=== PATIENT | male | born 1940 | race Caucasian/White ===

== ENCOUNTER 2017-12-24 20:50 | Emergency (ER) | payer MEDICARE, OTHER ==
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
[2017-12-24 22:24] VITALS: BP 131/67
== END 2017-12-24 22:25 | disposition home or self-care (01) ==
LOC: ER 20:50
DX: I11.0 Hypertensive heart disease with heart failure; S83.411A Sprain of medial collateral ligament of right knee, initial encounter; I48.91 Unspecified atrial fibrillation; Z79.01 Long term (current) use of anticoagulants; W00.0XXA Fall on same level due to ice and snow, initial encounter; I50.9 Heart failure, unspecified

== ENCOUNTER 2018-01-06 15:07 | Emergency (ER) | payer MEDICARE, OTHER ==
[2018-01-06] MEDS ORDERED: KETOROLAC TROMETHAMINE 60 MG/2 ML VIAL IM ONE ×2 (15:51→15:54)
--- NOTE | 2018-01-06 15:58 | ERNOTE ---
Chest Pain/Cardiac HPI Chief Complaint: Chest Pain Time Seen by Provider: 01/06/18 15:25 Source: patient Exam Limitations: no limitations Immunizations: IMMUNIZATION HX Immunizations Up to Date Yes History of Influenza Vaccine Yes Hx Pneumococcal Vaccination Yes Allergies/Adverse Reactions: Allergies codeine Adverse Reaction (Verified 12/21/14 10:14) Itching Sulfa (Sulfonamide Antibiotics) Adverse Reaction (Verified 12/21/14 10:14) Nausea Home Medications: HOME MEDICATIONS Amiodarone HCl [Cordarone] 200 mg PO DAILY 12/21/14 [Last Taken Unknown] Benazepril/Hydrochlorothiazide [Benazepril-Hctz 20-25 mg Tab] 1 each PO DAILY [Last Taken Unknown] Budesonide [Pulmicort Respules] 2 ml IH BID 12/21/14 [Last Taken Unknown] Carisoprodol [Soma] 350 mg PO HS 12/21/14 [Last Taken Unknown] Carvedilol [Coreg] 6.25 mg PO BID 12/21/14 [Last Taken Unknown] Doxazosin Mesylate [Cardura] 4 mg PO HS 12/21/14 [Last Taken Unknown] Flu Vaccine Ts (4 Yr+) [Fluvirin [id number]] 45 mcg IM PRN 12/21/14 [ Last Taken Unknown] HYDROcodone/ACETAMINOPHEN [[place] 5-325 Tablet] 1 - 2 tab PO Q6H PRN 12/21/14 [ Last Taken Unknown] Omeprazole [Prilosec] 20 mg PO DAILY 12/21/14 [Last Taken Unknown] Tamsulosin HCl [Flomax] 0.4 mg PO HS 12/21/14 [Last Taken Unknown] Warfarin Sodium [Coumadin] 4 mg PO DAILY 12/21/14 [Last Taken Unknown] Zoster Vaccine Live/Pf [Zostavax Vial] 19,400 unit SQ PRN 12/21/14 [Last Taken Unknown] amLODIPine BESYLATE [Norvasc] 5 mg PO DAILY 12/21/14 [Last Taken Unknown] Cyclobenzaprine HCl [Flexeril] 10 mg PO TID PRN #30 tab 01/06/18 [Last Taken Unknown] predniSONE [Deltasone] 20 mg PO BID #10 tablet 01/06/18 [Last Taken Unknown] Narrative: Patient was throwing up and while he was bending over he felt a small pop in his right lower rib cage area. He states it now hurts to take in a deep breath however he can palpate the area where it hurts at the right anterior inferior costochondral junction Timing: intermittent Severity/Quality: moderate Location: other - right lower anterior chest wall Chest Pain Radiation: no radiation Activities at Onset: other - vomiting Modifying Factors - Improves: Present: nothing Modifying Factors - Worsens: Present: breathing Nitro Today/Relief: no nitro taken today Aspirin Treatment Today: no aspirin today Associated Symptoms: Present: denies symptoms Prior Chest Pain/Cardiac Workup: Reports: non-cardiac - he's had this once before Review of Systems - Review of Systems Constitutional: Present: See HPI EYE: Present: no symptoms reported ENT: Present: no symptoms reported Respiratory: Present: no symptoms reported Cardiology: Present: chest pain - reproducible on palpation Gastrointestinal/Abdominal: Present: no symptoms reported Genitourinary: Present: no symptoms reported Musculoskeletal: Present: no symptoms reported Skin: Present: no symptoms reported Neurological: Present: no symptoms reported Endocrine: Present: no symptoms reported Hematologic/Lymphatic: Present: no symptoms reported Psych: Present: no symptoms reported - Patient's Past Medical History Patient History - Medical: No pertinent hx Patient History - Cardiac/Respiratory: Atrial Fibrillation, CHF, Hypertension Patient History - Cancer: No Hx of Cancer Patient History - Surgical Procedures: Cholecystectomy, T & A, Orthopedic Patient History - Other: None - Social History Living Situations: home Abuse History: No History of abuse Psych History: No pertinent hx Alcohol Use: sober Drug Use: none - Immunizations Immunizations Up to Date: Yes Hx Pneumococcal Vaccination: Yes History of Influenza Vaccine: Yes Physical Exam - Physical Exam General Appearance: Present: wd/wn, alert, moderate distress Head Exam: Present: normal inspection, no evidence of injury Eye Exam: Normal inspection: bilateral, PERRL: bilateral Ears, Nose, Throat: Present: normal ENT inspection, H, normal pharynx Neck: Present: normal inspection, nontender Respiratory: Present: no respiratory distress, normal breath sounds, no accessory muscle use, lungs clear, chest tenderness - chest wall at the right lower costochondral junction Cardiovascular/Chest: Present: regular rate, rhythm, no murmur, normal peripheral pulses Gastrointestinal/Abdominal: Present: normal bowel sounds, nontender, nondistended, soft, no organomegaly Rectal Exam: Present: deferred Back Exam: Present: normal inspection, normal range of motion Extremity Exam: Present: normal inspection, non-tender, no edema, normal range of motion Neurological Exam: Present: alert, oriented, normal mood/affect Skin Exam: Present: normal color, warm/dry Lymphatic Exam: Present: no adenopathy ED Progress - Vital Signs Patient's Vital Signs:: I have reviewed the patient's vital signs. Vital Signs: Vital Signs 01/06/18 15:23 Temperature 37.0 C Pulse Rate 61 Blood Pressure 109/62 O2 Sat by Pulse 96 Oximetry - X-Ray X-Ray #1 X-Ray: ribs Interpretation: Reviewed by me - Progress/Reassessment Chief Complaint: Chest Pain Plan - Plan Plan: Patient appears to have a chest wall strain and will be started on Flexeril and Naprosyn and he will follow-up with his family physician as needed. Departure Clinical Impression: Chest wall pain - Departure Disposition: Home self-care Condition: Good Instructions: Chest Wall Pain, [id number] Referrals: MIGUEL VERMA [Primary Care Provider] - Prescriptions: Cyclobenzaprine HCl [Flexeril] 10 mg PO TID PRN #30 tab PRN Reason: MUSCLE SPASMS predniSONE [Deltasone] 20 mg PO BID #10 tablet
[2018-01-06 17:44] VITALS: BP 114/60
== END 2018-01-06 16:45 | disposition home or self-care (01) ==
LOC: ER 15:07
DX: R07.89 Other chest pain (principal)